=== PATIENT | male | born 1980 | race Caucasian/White ===

== ENCOUNTER 2023-09-10 10:15 | Outpatient (RCR) | payer BC, SELFPAY | END 2023-11-30 12:44 | disposition home or self-care (01) | PROVIDERS: Visit Provider Family Medicine | DX: M51.26 Other intervertebral disc displacement, lumbar region (principal); M54.16 Radiculopathy, lumbar region; Z51.89 Encounter for other specified aftercare | CPT/HCPCS: 97110; 97161 ==

== ENCOUNTER 2025-03-28 17:55 | Emergency (ER) | payer BC, SELFPAY ==
--- OUTSIDE RECORDS SUMMARY | 2025-03-28 17:57 | XMS_ITS | Patient Health Record ---
Author Organization [facility] Address [address] [place] [address] Care Team Providers Care Fermenting Cellars Supervisor Name Role Phone ViDavidHenok Primary Care Provider RENAE Mejia Unavailable [phone] Reason For Referral No Information Social History Social History : Social Info Question Answer Notes How often do you consume alcohol? Answer: less than 6 per week Recreational drug use Social Info Question Answer Notes Did you ever use recreational drugs? Answer: No Additional Details Category Social Info Options Details Occupation Current occupation: [employer] Tobacco Use: Smoking cessation discussed Yes Problems Problem Type SNOMED Code ICD Code Onset Dates Problem Status W/U Status Risk Notes Problem Right-sided epistaxis (R04.0) Active confirmed Problem Deviated nasal septum (030968950) Deviated nasal septum (J34.2) 7 0 confirmed [id number] Problem Epistaxis (629946782) Epistaxis (R04.0) 7 0 confirmed [id number] Problem Necrosis of nose (57145215) Necrosis of nose (J34.0) 7 0 confirmed [id number] Plan Of Treatment No Information Insurance Providers Payer Name Payer Address Payer Phone Subscriber Number Group Number Insured Name Patient Relationship to Insured Coverage Start Date Coverage End Date [facility] [address] [address] [place] [address] [id number] Tin Long Self - patient is the insured Medical (General) History Medical History History ICD Code No other health issues documented Surgical History Surgery Date(Month/Year) Eye surgery 2000 Hospitalization History Reason Date(Month/Year) see above
--- OUTSIDE RECORDS SUMMARY | 2025-03-28 17:57 | XMS_ITS | Clinical Summary ---
Author Organization [facility] Address [address] [place] [address] Care Team Providers Care Wireless Sales Representative Name Role Phone Unassigned, Provider Primary Care Provider Unava ilable Source Comments You are receiving this document as you are listed as the primary care provider,follow-up provider, or the patient has been referred to you for consultation.This is in compliance with the Medicare andMedicaid EHR Incentive Program,which states Providers who transition their patient to another setting of careor provider of care or refers their patient to another provider of care shouldprovide summary care record for each transition of care or referral. [employer] [employer] Allergies No known active allergies Medications gabapentin (NEURONTIN) 300 MG capsule Take 1 Capsule (300 mg) by mouth three times a day. 270 Capsule 3 04/22/2023 Active Immunizations Immunization Administration Dates Next Due DTP 12/19/1985 OPV, Trivalent (Orimune or tOPV) 12/19/1985 Social History Tobacco Use Types Packs/Day Years Used Date Smoking Tobacco: Never Assessed Sex and Gender Information Value Date Recorded Sex Assigned at Not on file Legal Sex Male 4:46 AM CDT Gender Identity Not on file Sexual Orientation Not on file Last Filed Vital Signs Vital Sign Reading Time Taken Comments Blood Pressure 136/85 05/24/2023 3:41 PM AUTO TOP MECHANIC Pulse 83 05/24/2023 3:41 PM AUTO TOP MECHANIC Temperature 36.4 C (97.6 F) 03/22/2023 9:43 AM AUTO TOP MECHANIC Respiratory Rate 16 05/24/2023 3:41 PM AUTO TOP MECHANIC Oxygen Saturation - - Inhaled Oxygen Concentration - - Weight 92.5 kg (204 lb) 03/15/2023 8:32 AM AUTO TOP MECHANIC Height 182.9 cm (6') 03/15/2023 8:32 AM AUTO TOP MECHANIC Body Mass Index 27.67 03/15/2023 8:32 AM AUTO TOP MECHANIC Plan of Treatment Health Maintenance Due Date Last Done Comments Hep C Screening (Preventive Services) 1980 IPV (Polio) Vaccine (2 of 3 - 4-dose series) 01/16/1986 12/19/1985 HIV Screening (Preventive Services) 1996 Adult Preventive Visit 1998 HepB Vaccine (1) 09/23/1999 HPV Vaccine (1 - 3-dose SCDM series) 09/23/2007 Cholesterol 09/23/2015 COVID-19 Vaccine ( - 2024-2 6 season) 2025 Influenza Vaccine (#1) 2025 04/06/2007 DTaP/Tdap/Td Vaccine (4 - Tdap) 05/18/2027 05/18/2017, 08/15/1997, 12/19/1985 Zoster/Shingles Vaccine (1 o f 2) 2030 HepA Vaccine Aged Out No longer eligi ble based on patient's age to complete this topic Hib Vaccine Aged Out No longer eligi ble based on patient's age to complete this topic MCV4 Vaccine Aged Out No longer eligi ble based on patient's age to complete this topic Meningococcal B Vaccine Aged Out No l onger eligible based on patient's age to complete this topic Pneumococcal Vaccine Aged Out No long er eligible based on patient's age to complete this topic Insurance [facility] Care Teams Wireless Sales Representative Relationship Specialty Start Date End Date Unassigned, Provider [address] [place] [address] PCP - General 07/04/00
--- OUTSIDE RECORDS SUMMARY | 2025-03-28 17:57 | XMS_ITS | Clinical Summary ---
Author Organization [facility] Address [address] [place] [address] Care Team Providers Care Day Care Aide Name Role Phone Bryce Antunez MD Primary Care Provider Allergies No known active allergies Medications omeprazole 40 mg Delayed-Release capsuleIndicatio ns:Chronic GERD,Dysphagia, unspecified type Take 1 Capsule (40 mg) by mouth once daily before a meal. 90 Capsule 10/29/2024 Active Immunizations Immunization Administration Dates Next Due DTP 12/19/1985 Influenza, IIV3 (Age >=3 years) 04/06/2007 Oral Polio Vaccine 12/19/1985 Td (Age >=7 Years) 08/15/1997 Tdap 05/18/2017 Social History Tobacco Use Types Packs/Day Years Used Date Smoking Tobacco: Never Passive Smoke Exposure: Never Smokeless Tobacco: Never Tobacco Cessation:Counseling Given: Not Answered Alcohol Use Standard Drinks/Week Comments Yes 0 (1 standard drink = 0.6 oz pur e alcohol) Occasional PHQ-2 Answer Date Recorded PHQ-2 TOTAL SCORE 0 09/08/2022 Social Connections Answer Date Recorded Do you often feel lonely or isolated from those around you? 0 10/24/2024 Financial Resource Strain Answer Date R ecorded Difficulty of Paying Living Expenses 3 10/24/2024 Difficulty of Paying Living Expenses Not on file 10/24/2024 Food Insecurity Answer Date Recorded Do you worry your food will run out before you are able to buy more? 1 10/24/2024 Transportation Needs Answer Date Record ed Does lack of transportation keep you from medica l appointments? 1 10/24/2024 Does lack of transportation keep you from work, meetings or getting things that you need? 1 10/24/2024 Housing Stability Answer Date Recorded What is your housing situation today? 1 10/24/2024 Utilities Answer Date Recorded Do you have trouble paying f or utilities (for example, heat, electricity, water, phone)? 1 10/24/2024 Sex and Gender Information Value Date Recorded Sex Assigned at Not on file Legal Sex Male 8:59 PM MEDICAL TRANSPORT SPECIALIST Gender Identity Not on file Sexual Orientation Not on file Obstetrics History Last Filed Vital Signs Vital Sign Reading Time Taken Comments Blood Pressure 110/72 10/23/2024 12:39 PM CDT Pulse 78 10/23/2024 12:39 PM CDT Temperature 36.6 C (97.8 F) 05/11/2022 2:33 PM MEDICAL TRANSPORT SPECIALIST Respiratory Rate - - Oxygen Saturation - - Inhaled Oxygen Concentration - - Weight 94.3 kg (208 lb) 10/23/2024 12:39 PM CDT Height 182.9 cm (6') 10/23/2024 12:39 PM CDT Body Mass Index 28.21 10/23/2024 12:39 PM CDT Plan of Treatment Health Maintenance Due Date Last Done Comments HIV for age 15-65 09/23/1995 Hepatitis C screening for ag e 18-79 1998 Hepatitis B series for 19+ ( 1 of 3 - 19+ 3-dose series) 09/23/1999 HPV series for age 9-45 (1 - 3-dose SCDM series) 09/23/2007 Lipids for age 35-44 09/23/2015 Depression screening for age 12+ 09/12/2023 09/11/2022, 09/08/2022 Influenza Vaccine (#1) 2025 04/06/2007 BMI (ht and wt on same day) for age 18+ 10/23/2025 10/23/2024, 05/11/2022, 04/08/2022 Tetanus booster 05/18/2027 05/18/2017, 08/15/1997 RSV vaccine for adults or (1 - 1-dose 75+ series) 09/23/2055 Pneumococcal series for age 6-49 Aged Out No longer eligible b ased on patient's age to complete this topic Insurance [facility] [place] [phone] Care Teams Day Care Aide Relationship Specialty Start Date End Date Bryce Antunez MD [address] [place] [address] [place] [address] PCP - General Family Practice 09/08/22
--- OUTSIDE RECORDS SUMMARY | 2025-03-28 17:57 | XMS_ITS | Encounter Summary ---
Author Organization [facility] Address [facility] [place] [address] Care Team Providers Care Lead Mechanic Name Role Phone [facility] Primary Care Provide r Wenceslao Ferro OD Unavailable No Ref-Primary, Physician Primary Care Provider Encounter Details Date Type Department Care Team (Late st Contact Info) Description 07/29/2012 Office Visit-[facility] DEPT Unknown, Provider Social History Tobacco Use Types Packs/Day Years Used Date Smoking Tobacco: Never Assessed Sex and Gender Information Value Date Recorded Sex Assigned at Not on file Legal Sex Male 3:20 AM PRODUCT OPERATIONS ASSOCIATE Gender Identity Not on file Sexual Orientation Not on file documented as of this encounter Progress Notes * Unknown, Provider - 07/29/2012 7:45 AM CDT Deputy Treasurer: Pamella Johnson Status: Final Encounter: 2012-07-29 07:45:00.000 Type: Rooming Note Reason For Visit TIN LONG is a 31 year old male being seen in clinic for yearly DFE Do you have any other appointments, tests or procedures within the [facility] system for this same day? No. Pain Eval Current history of pain associated with this visit is denied. Personal Hx Behavioral history: Tobacco use. Home environment: No secondhand tobacco smoke in home. Allergies No Known Drug Allergy. Current Meds Med list offered and patient declined. [facility]-MED RECONCILE;; RPT. Signature Signed By: Pamella Johnson COA; 07/29/2012 7:37 AM PRODUCT OPERATIONS ASSOCIATE. documented in this encounter Plan of Treatment Not on file documented as of this encounter Visit Diagnoses Not on filedocumented in this encounter Additional Health Concerns Infection Onset Date Last Indicated Resolved Time Influenza 07/11/2023 07/11/2023 07/18/2023 11:4 2 PM CDT documented as of this encounter Care Teams Lead Mechanic Relationship Specialty Start Date End Date [facility] [address] [place] [address] PCP - General 01/02/16 08/29/22 No Ref-Primary, Physician PCP - General 08/30/22 [place] [address] [place] [address] Optometry 07/16/16 09/27/16 documented as of this encounter
--- OUTSIDE RECORDS SUMMARY | 2025-03-28 17:57 | XMS_ITS | Clinical Summary ---
Author Organization [facility] Address [address] [place] [address] Care Team Providers Care Continuous Mining Machine Operator Name Role Phone No Ref-Primary, Physician Primary Care Provider Allergies No known active allergies Medications albuterol (PROAIR HFA/PROVENTIL HFA/VENTOLIN HFA) 108 (90 Base) MCG/ACT inhalerIndicati ons:Acute cough Inhale 2 puffs into the lungs every 6 hours as needed for wheezing or cough 18 g 07/11/2023 Active Active Problems Problem Noted Date Diagnosed Date Epistaxis, recurrent 09/29/2016 Posterior epistaxis 09/28/2016 Immunizations Immunization Administration Dates Next Due Influenza (IIV3) PF 04/06/2007 Family History Medical History Relation Comments Diabetes No family hx of Glaucoma No family hx of Macular Degeneration No family hx of Retinal detachment No family hx of Social History Tobacco Use Types Packs/Day Years Used Date Smoking Tobacco: Every Day Cigarettes Tobacco Cessation:Ready to Q uit: Not Asked; Counseling Given: Not Answered Alcohol Use Standard Drinks/Week Comments Yes 2 (1 standard drink = 0.6 oz pur e alcohol) Adolescent Education Answer Date Record ed Getting School Help Needed Not on file 02/14 Sex and Gender Information Value Date Recorded Sex Assigned at Not on file Legal Sex Male 3:20 AM TOY ELECTRIC TRAIN REPAIRER Gender Identity Not on file Sexual Orientation Not on file Last Filed Vital Signs Vital Sign Reading Time Taken Comments Blood Pressure 121/89 07/11/2023 6:44 PM CDT Pulse 77 07/11/2023 6:44 PM CDT Temperature 36.8 C (98.3 F) 07/11/2023 6:44 PM CDT Respiratory Rate 22 07/11/2023 6:44 PM CDT Oxygen Saturation 97% 07/11/2023 6:44 PM CDT Inhaled Oxygen Concentration - - Weight 95.3 kg (210 lb 1.6 oz) 09/28/2016 10:08 PM CDT Height 182.9 cm (6') 09/28/2016 10:08 PM CDT Body Mass Index 28.49 09/28/2016 10:08 PM CDT Plan of Treatment Health Maintenance Due Date Last Done Comments ADVANCE CARE PLANNING 1980 ANNUAL REVIEW OF HM ORDERS 1980 YEARLY PREVENTIVE VISIT 09/23/1983 HIV SCREENING 09/23/1995 HEPATITIS C SCREENING 1998 HEPATITIS B VACCINE (1 of 3 - 19+ 3-dose series) 09/23/1999 LIPID 2020 PHQ-2 (once per calendar year) 2024 COVID-19 VACCINE (1 - 2024- season) 2025 INFLUENZA VACCINE (#1) 2025 04/06/2007 DIABETES SCREENING 08/30/2025 08/30/2022, 0 09/29/2016, 09/29/2016, Additional history exists DTAP/TDAP/TD VACCINE (4 - Td or Tdap) 05/18/2027 05/18/2017, 08/15/1997, 12/19/1985 ZOSTER VACCINE (1 of 2) 2030 HPV VACCINE (No Doses Required) Completed MENINGITIS VACCINE Aged Out No longer eligible based on patient's age to complete this topic PNEUMOCOCCAL VACCINE: PEDIATRICS (0 to 5 YEARS) AND AT-RISK PATIENTS (6 to 49 YEARS) Aged Out No longer eligible based on patient's age to complete this topic Medical Devices Implanted Type Area Manufacturing Storeperson Device Identifier Shelf Expiration Date Model / Serial / Lot Embolic Substance/Dev ice-09/29/2016 Implanted: by Abel Jacobs MD (Quantity not on file) Embolic Substance/D evice Bilateral: Arterial embolization particles 08/01/2019 / / [id number] Embolic Substance/Dev ice-09/29/2016 Implanted: by Abel Jacobs MD (Quantity not on file) Embolic Substance/D evice Bilateral: Arterial surgifoam 07/27/2020 Procedures Procedure Name Priority Date/Time Associated Diagnosis Comments BASIC METABOLIC PANEL STAT 08/30/2022 9:44 PM CDT from Last 3 Months or Most Recently Relevant to Health Maintenance Results * (ABNORMAL) Basic metabolic panel (08/30/2022 9:44 PM CDT) Sodium 140 136 - 145 mmol/L 08/30/2022 10:16 PM CDT LABORATORY Potassium 3.6 3.4 - 5.3 mmol/L 08/30/2022 10:16 PM CDT LABORATORY Chloride 103 98 - 107 mmol/L 08/30/2022 10:16 PM CDT LABORATORY Carbon Dioxide (CO2) 25 22 - 29 mmol/L 08/30/2022 10:16 PM CDT LABORATORY Anion Gap 12 7 - 15 mmol/L 08/30/2022 10:16 PM CDT LABORATORY Urea Nitrogen 19.9 6.0 - 20.0 mg/dL 08/30/2022 10:16 PM CDT LABORATORY Creatinine 0.95 0.67 - 1.17 mg/dL 08/30/2022 10:16 PM CDT LABORATORY Calcium 9.6 8.6 - 10.0 mg/dL 08/30/2022 10:16 PM CDT LABORATORY Glucose 152(H) 70 - 99 mg/dL 08/30/2022 10:16 PM CDT LABORATORY GFR Estimate >90 >60 mL/min/1.7 3m2 08/30/2022 10:16 PM CDT LABORATORY Comment:eGFR calculated us2020 CKD-EPI equation. Blood BLOOD SPECIMEN / Unknown Venipuncture / Unknown 08/30/2022 9:44 PM CDT 08/30/2022 9:51 PM CDT Tatyana Kerr MD LAB - BLOOD ORDERABLES Final R esult LABORATORY [facility] [address] Lab (1st floor, no room number) [place] [address], [facility] [phone] from Last 3 Months or Most Recently Relevant to Health Maintenance Insurance [place] [id number] [id number] [place] Advance Directives For more information, please contact: [phone] * Full Code (Latest Code Status on File) Date Activated Date Inactivated Comments 10/01/2016 10:15 AM 08/30/2022 9:28 PM * Full Code Date Activated Date Inactivated Comments 09/29/2016 5:53 PM 10/01/2016 10:15 AM * Full Code Date Activated Date Inactivated Comments 09/28/2016 9:47 PM 09/29/2016 5:53 PM Care Teams Continuous Mining Machine Operator Relationship Specialty Start Date End Date No Ref-Primary, Physician PCP - General 08/30/22
[2025-03-28 18:20] VITALS: BP 147/86; PULSE 75; RESP 18; TEMP 37.3; O2SAT 98
--- NOTE | 2025-03-28 18:49 | CRLHL7_ITS ---
For Patients: As a result of the Century Cures Act, medical imaging exams and procedure reports are released immediately into your electronic medical record. You may view this report before your referring provider. If you have questions, please contact your health care provider. INDICATION: Diarrhea. TECHNIQUE: CT abdomen and pelvis acquired with 101 cc Isovue 370 IV contrast. COMPARISON: None. FINDINGS: Lower chest: Unremarkable. Liver: Unremarkable Gallbladder and bile ducts: Unremarkable Pancreas: Unremarkable Spleen: Unremarkable Adrenal glands: Unremarkable Kidneys: Punctate nonobstructing bilateral renal calculi seen in both lower poles. No hydronephrosis. GI tract: Mild bowel wall thickening of the distal transverse, descending and sigmoid colon extending to the rectum with hyperemia, which could be reflective mild infectious/inflammatory colitis. Few scattered sigmoid colonic diverticuli. Normal appendix. Vasculature: Abdominal aorta is normal in caliber. Lymph nodes: No lymphadenopathy. Peritoneum/Abdominal Wall: Unremarkable Pelvis: Mild urinary bladder wall thickening, correlate with urinalysis for cystitis. Bones: No acute findings. IMPRESSION: Mild bowel wall thickening of the distal transverse, descending and sigmoid colon extending to the rectum with hyperemia which could be reflective of mild infectious/inflammatory colitis. Punctate nonobstructing bilateral renal calculi. Mild urinary bladder wall thickening, correlate with urinalysis for cystitis. Please note that all CT scans at this facility use dose modulation, iterative reconstruction, and/or weight-based dosing when appropriate to reduce radiation dose to as low as reasonably achievable. Dictated by Rodolfo Moreira MD @ 03/28/2025 8:18:31 PM (Electronically Signed)
--- NOTE | 2025-03-28 18:49 | ED.GENADULT ---
HPI - General Adult General Date Seen: 03/28/25 Chief complaint: GI Bleed Stated complaint: blood in stool Time Seen by Provider: 03/28/25 18:33 Source: patient and RN notes reviewed Mode of arrival: ambulatory Limitations: no limitations History of Present Illness HPI narrative: Tin is a very pleasant 44-year-old gentleman with a history of. Lumbar pain, otherwise healthy who comes to the emergency room with blood in his stools throughout the day. Patient notes that he had a normal bowel movement on WednesdayMarch 26. Yesterday did not have a bowel movement as he was very busy with working on a grain bin and then driving up to [place]. He states that 0400 hours this morning he felt the urge to go to the bathroom after waking up but felt like maybe he was constipated. He did produce some bright red blood in the bottom of the toilet which is apprised him. This has never happened to him before. Following that he has had frequent bowel movements and at 1 point had a firm bowel movement that he thought maybe was a little constipation along with some blood. However he has continued to have some blood in his stool 1-2 times per hour throughout the day. He denies a fever or any abdominal pain. He denies history of hemorrhoids and has had no external itching or discomfort. He has no shortness of breath chest pain fever cold. He has not traveled, eaten any uncooked meat or had any recent antibiotics. He denies frequent use of NSAIDs but did have ibuprofen yesterday. Related Data Home Medications ?Medication ?Instructions ?Recorded ?Confirmed No Known Home Medications 02/14/24 03/28/25 Allergies Allergy/AdvReac Type Severity Reaction Status Date / Time No Known Drug Allergies Allergy Verified 03/28/25 19:21 Review of Systems Status of ROS: Reports: 10 or more systems reviewed and unremarkable except as noted in History and below Const: Denies: fever, chills or fatigue ENMT: Denies: neck pain or nasal congestion Cardio: Denies: chest pain, lightheadedness or shortness of breath with exertion Resp: Denies: shortness of breath GI: Reports: diarrhea and blood in stool; Denies: abdominal pain, nausea or vomiting : Denies: painful urination or urinary frequency Musculo: Reports: back pain (Chronic and exacerbated by recent trip); Denies: neck pain Endo: Denies: fatigue [facility] Medical History Kidney stone ?N20.0 - Calculus of kidney (ICD-10) Sore throat ?J02.9 - Acute pharyngitis, unspecified (ICD-10) Surgical History History of eye surgery ?Z98.890 - Other specified postprocedural states (ICD-10) Social History Smoking Status: Former smoker What tobacco products do you use: cigarettes Smoking quit date/years: <= 15 years ago Do you use any of these nicotine containing products: None Second hand tobacco smoke exposure: No Exam Narrative: Exam Narrative: Alert and oriented. Nontoxic in appearance. In good color. External ears eyes nose clear. Neck is supple. Heart with regular rate and rhythm. Lungs are clear. Abdomen is soft nontender. No masses are palpated. Examination shows no evidence of hemorrhoids. Digital exam shows no swelling tenderness in the rectum. No blood on glove. Moving extremities without difficulty. No obvious bruising on body. 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 Const: Vital Signs, click to edit/add: Vital Signs - 24 hr 03/28/25 18:20 Temperature 99.1 F Pulse Rate [Right Pulse Oximeter] 75 Respiratory Rate 18 Blood Pressure [Ri ght Upper Arm] 147/86 H Pulse Oximetry 98 Oxygen Delivery Me thod Room Air Documenting provider has reviewed patient's vital signs: yes Course Course ED Course: Differential diagnosis includes but is not limited to internal hemorrhoid, diverticular bleed, diverticulitis, colitis, colonic mass. Must also consider viral or bacterial GI cause although I would expect to feel sick and may be even have a fever with that. Will obtain GI pathogen panel, CBC, comprehensive, INR, abdominal CT have contrast. Patient in agreement with our plan. Reevaluation(s) Reevaluation #1: Patient continued to be stable pain-free throughout his ED stay. Vital Signs Vital signs: Initial Vital Signs Temperature 99.1 F 03/28/25 18:20 Temperature Source Temporal Artery Scan 03/28/25 18:20 Pulse Rate 75 03/28/25 18:20 Pulse Rhythm Regular 03/28/25 18:20 Pulse Strength 3+ Normal 03/28/25 18:20 Respiratory Rate 18 03/28/25 18:20 Blood Pressure 147/86 H 03/28/25 18:20 Blood Pressure Mean 106 H 03/28/25 18:20 Blood Pressure Position Sitting 03/28/25 18:20 Pulse Oximetry 98 03/28/25 18:20 Oxygen Delivery Method Room Air 03/28/25 18:20 Vital Signs Temperature 99.1 F 03/28/25 18:20 Pulse Rate 75 03/28/25 18:20 Respiratory Rate 18 03/28/25 18:20 Blood Pressure 147/86 H 03/28/25 18:20 Pulse Oximetry 98 03/28/25 18:20 Oxygen Delivery Method Room Air 03/28/25 18:20 Temperature 99.1 F 03/28/25 18:20 Pulse Rate 75 03/28/25 18:20 Respiratory Rate 18 03/28/25 18:20 Blood Pressure 147/86 H 03/28/25 18:20 Pulse Oximetry 98 03/28/25 18:20 Oxygen Delivery Method Room Air 03/28/25 18:20 Medical Decision Making MDM Narrative Medical decision making narrative: 1. Colitis-patient noted to have no abdominal pain but the onset of blood in his stool this morning [place] [address] does show Mild bowel wall thickening of the distal transverse, descending and sigmoid colon extending to the rectum with hyperemia reflective of mild infectious/inflammatory colitis. It is surprising to me that patient does not have discomfort. He also does not have fever and his labs are reassuring. Certainly this could be a viral or bacterial cause and thus we are awaiting a GI pathogen panel. Alternatively I think we have to consider underlying autoimmune causes. At this time recommend symptomatic cares to include ibuprofen or Tylenol if he develops any mild abdominal pain, pushing fluids, avoiding alcohol at this time. I do think he should follow-up in approximately 3-4 weeks with his primary MD to be set up for colonoscopy. This of course would likely not be necessary if he is positive on the GI pathogen panel. 2. Bright red blood per rectum -this has slowed down this evening in the ED. White count is normal and hemoglobin is 15.6. INR is normal as well. 3. Disposition-patient will be discharged home. The CT it was noted that he had some mild bladder wall thickening. Will obtain a UA prior to patient's departure. No urinary symptoms at this time. Addendum: No evidence of UTI. Medical Records Medical records reviewed: Yes I reviewed the patient's medical records Lab Data Lab results reviewed: Yes I reviewed the patient's lab results Lab results narrative: Reviewed by myself. White count hemoglobin within normal limits. CRP is negative. Labs: Lab Results 03/28/25 03/28/25 Range/Units 19:06 21:00 WBC 6.91 (4.50-11.00) K/uL RBC 5.08 (4.30-5.90) m/uL Hgb 15.6 (13.5-17.5) gm/dL Hct 46.7 (37.0-53.0) % MCV 92 (80-100) fL MCH 31 (26-34) pg MCHC 33 (32-36) gm/dL RDW Coeff of Lesly 12.1 (11.5-15.5) % Plt Count 200 (140-440) K/uL Neut % (Auto) 62.1 (42.0-72.0) % Lymph % (Auto) 27.1 (20-44) % [place] % (Auto) 9.4 (0.0-11.0) % Eos % (Auto) 0.9 (0.0-7.0) % Baso % (Auto) 0.4 (0.0-3.0) % Neut # (Auto) 4.29 (1.7-7.0) K/uL Lymph # (Auto) 1.87 (0.90-2.90) K/uL [place] # (Auto) 0.60 (0.00-0.90) K/UL Eos # (Auto) 0.06 (0.00-0.50) K/uL Baso # (Auto) 0.03 (0.00-0.30) K/uL Abs Immat Gran (auto) 0.01 (0.00-0.30) K/uL Imm/Tot Granulo (auto) 0.1 % INR 0.93 (0.91-1.10) Sodium 135 (135-149) mmol/L Potassium 4.0 (3.6-5.1) mmol/L Chloride 97 (96-114) mmol/L Carbon Dioxide 28 (20-32) mmol/L Anion Gap 10 (7-15) mEq/L BUN 20 (5-24) mg/dL Creatinine 0.9 (0.5-1.5) mg/dL Estimated GFR 108 ml/min Glucose 94 (60-115) mg/dL Lactate 0.7 (0.5-1.9) mmol/L Calcium 9.1 (8.4-10.6) mg/dL Total Bilirubin 0.8 (0.1-1.5) mg/dL AST 32 (12-35) U/L ALT 34 (4-50) U/L Alkaline Phosphatase 97 (40-150) U/L C-Reactive Protein < 0.5 L (0.5-1.0) mg/dL Total Protein 8.4 H (6.0-8.3) g/dL Albumin 4.8 (3.3-5.0) g/dL Urine Color Yellow (Yellow) Urine Appearance Clear (Clear) Urine pH 5.0 (5.0-8.5) Ur Specific [place] <= 1.005 (1.000-1.030) Urine Protein Negative (Negative) Urine Glucose (UA) Negative (Negative) Urine Ketones Negative (Negative) Urine Blood Negative (Negative) Urine Nitrite Negative (Negative) Urine Bilirubin Negative (Negative) Urine Urobilinogen 0.2 (0.2-1.0) Ur Leukocyte Esterase Negative (Negative) Urine RBC 0-2 (0-2) Urine WBC 0-2 (0-5) Ur Squamous Epith Cells Few (None-Few) Urine Bacteria None (None) Imaging Data CT scan - abdomen: Attestation: I have reviewed the pertinent imaging results. My impression: By my read I do question bowel wall thickening of the descending colon. Radiologist's impression: Lower chest: Unremarkable. Liver: Unremarkable Gallbladder and bile ducts: Unremarkable Pancreas: Unremarkable Spleen: Unremarkable Adrenal glands: Unremarkable Kidneys: Punctate nonobstructing bilateral renal calculi seen in both lower poles. No hydronephrosis. GI tract: Mild bowel wall thickening of the distal transverse, descending and sigmoid colon extending to the rectum with hyperemia, which could be reflective mild infectious/inflammatory colitis. Few scattered sigmoid colonic diverticuli. Normal appendix. Vasculature: Abdominal aorta is normal in caliber. Lymph nodes: No lymphadenopathy. Peritoneum/Abdominal Wall: Unremarkable Pelvis: Mild urinary bladder wall thickening, correlate with urinalysis for cystitis. Bones: No acute findings. IMPRESSION: Mild bowel wall thickening of the distal transverse, descending and sigmoid colon extending to the rectum with hyperemia which could be reflective of mild infectious/inflammatory colitis. Punctate nonobstructing bilateral renal calculi. Mild urinary bladder wall thickening, correlate with urinalysis for cystitis. Discharge Plan Discharge Clinical Impression: Rectal bleed, Colitis Patient Disposition: Home, Self-Care Condition: Improved Instructions: Colitis (ED) Additional Instructions: Push fluids. Follow-up with your primary MD in 3-4 weeks for a recheck. Would recommend colonoscopy and further evaluation for this event. We will await to the GI pathogen panel which identifies many causes of colitis such as viruses and bacteria. Avoid alcohol at this time. Return to the ER for abdominal pain, persistent vomiting, high fever. Prescriptions: No Action No Known Home Medications Follow Up/Referrals: Provider,Not a Local [Primary Care Provider, Family Practice] Stand Alone Forms: [employer] Info Instructions
[2025-03-28 19:14] LABS: Lactate* 0.7 mmol/L (0.5-1.9)
[2025-03-28 19:15] LABS: Hematocrit* 46.7 % (37.0-53.0); Hemoglobin* 15.6 gm/dL (13.5-17.5); Immature Granulocytes Abs Auto 0.01 K/uL (0.00-0.30); Immature Granulocytes Pct Auto 0.1 %; Lymphocytes Absolute Auto 1.87 K/uL (0.90-2.90); Mean Corpuscular HGB Conc 33 gm/dL (32-36); Mean Corpuscular Hemoglobin 31 pg (26-34); Mean Corpuscular Volume 92 fL (80-100); RDW Coefficient of Variation % 12.1 % (11.5-15.5); Red Blood Count* 5.08 m/uL (4.30-5.90); White Blood Count* 6.91 K/uL (4.50-11.00)
[2025-03-28 19:19] LABS: Slide Review Reflex No
[2025-03-28 19:33] LABS: Albumin* 4.8 g/dL (3.3-5.0); Chloride* 97 mmol/L (96-114); Potassium* 4.0 mmol/L (3.6-5.1); Sodium* 135 mmol/L (135-149)
[2025-03-28 19:35] LABS: Blood Urea Nitrogen* 20 mg/dL (5-24); Creatinine* 0.9 mg/dL (0.5-1.5); Estimated Glomerular Filt Rate 108 ml/min
[2025-03-28 19:36] LABS: Alanine Aminotransferase* 34 U/L (4-50); Alkaline Phosphatase* 97 U/L (40-150); Anion Gap 10 mEq/L (7-15); Aspartate Amino Transferase* 32 U/L (12-35); Bilirubin Total* 0.8 mg/dL (0.1-1.5); Calcium* 9.1 mg/dL (8.4-10.6); Carbon Dioxide* 28 mmol/L (20-32); Glucose* 94 mg/dL (60-115); Total Protein* 8.4 g/dL (6.0-8.3)
[2025-03-28 20:15] LABS: INR 0.93 (0.91-1.10); Prothrombin Time 13.3 Seconds
[2025-03-28 21:09] LABS: Appearance Urine Clear (Clear)
== END 2025-03-28 21:53 | disposition home or self-care (01) ==
PROVIDERS: Emergency Provider Family Medicine
DX: K62.5 Hemorrhage of anus and rectum (principal); K52.9 Noninfective gastroenteritis and colitis, unspecified
CPT/HCPCS: 36415; 74177; 80053; 81001; 83605; 85025; 85610; 86140; 87507; 99284; 99285; Q9967